=== PATIENT | male | born 1945 | race Native Hawaiian/Other Pacific Islander ===

== ENCOUNTER 2016-07-06 07:40 | Outpatient (CLI) | payer OTHER, BC ==
[2016-07-06 09:46] LABS: POTASSIUM 3.8 mmol/L (3.6-5.2); SODIUM 136 mmol/L (136-145)
== END 2016-07-06 19:05 | disposition home or self-care (01) ==
LOC: LABW 07:40
PROVIDERS: Internal Medicine Endocrinology, Diabetes & Metabolism
DX: E11.65 Type 2 diabetes mellitus with hyperglycemia (principal); E78.2 Mixed hyperlipidemia; E29.1 Testicular hypofunction; E53.8 Deficiency of other specified B group vitamins
CPT/HCPCS: 36415; 80053; 80061; 82607; 83036; 84402; 84403

== ENCOUNTER 2016-10-11 07:36 | Outpatient (CLI) | payer OTHER, BC ==
[2016-10-11 08:37] LABS: POTASSIUM 4.4 mmol/L (3.6-5.2); SODIUM 137 mmol/L (136-145)
== END 2016-10-11 19:42 | disposition home or self-care (01) ==
LOC: LABW 07:36
PROVIDERS: Internal Medicine Endocrinology, Diabetes & Metabolism
DX: E11.65 Type 2 diabetes mellitus with hyperglycemia (principal); E78.2 Mixed hyperlipidemia; E29.1 Testicular hypofunction; E53.8 Deficiency of other specified B group vitamins
CPT/HCPCS: 36415; 80053; 80061; 82607; 83036; 84402; 84403

== ENCOUNTER 2017-01-24 08:10 | Outpatient (CLI) | payer OTHER, BC ==
[2017-01-24 08:38] LABS: PLATELET COUNT 267 K/uL (142-355)
[2017-01-24 08:49] LABS: POTASSIUM 4.2 mmol/L (3.6-5.2)
== END 2017-01-24 09:10 | disposition home or self-care (01) ==
LOC: LABW 08:10
PROVIDERS: Internal Medicine Endocrinology, Diabetes & Metabolism
DX: E11.65 Type 2 diabetes mellitus with hyperglycemia (principal); E78.2 Mixed hyperlipidemia; E53.8 Deficiency of other specified B group vitamins
CPT/HCPCS: 80053; 80061; 82043; 82570; 82607; 83036; 85027

== ENCOUNTER 2017-06-01 10:20 | Outpatient (CLI) | payer OTHER, BC ==
[2017-06-01 10:48] LABS: SODIUM 138 mmol/L (136-145)
[2017-06-01 10:58] LABS: PLATELET COUNT 253 K/uL (142-355)
== END 2017-06-01 22:40 | disposition home or self-care (01) ==
LOC: LABW 10:20
PROVIDERS: Internal Medicine Endocrinology, Diabetes & Metabolism
DX: E11.65 Type 2 diabetes mellitus with hyperglycemia (principal)
CPT/HCPCS: 36415; 80053; 80061; 82607; 83036; 85027

== ENCOUNTER 2017-11-21 07:18 | Outpatient (CLI) | payer OTHER, BC ==
[2017-11-21 07:48] LABS: PLATELET COUNT 242 K/uL (142-355)
[2017-11-21 08:03] LABS: POTASSIUM 4.1 mmol/L (3.6-5.2)
== END 2017-11-21 19:58 | disposition home or self-care (01) ==
LOC: LABW 07:18
PROVIDERS: Internal Medicine Endocrinology, Diabetes & Metabolism
DX: E11.65 Type 2 diabetes mellitus with hyperglycemia (principal); E78.2 Mixed hyperlipidemia; E53.8 Deficiency of other specified B group vitamins
CPT/HCPCS: 36415; 80053; 80061; 82043; 82570; 82607; 83036; 85027

== ENCOUNTER 2017-12-21 13:24 | Outpatient (CLI) | payer OTHER, BC ==
[2017-12-21 14:09] LABS: POTASSIUM 4.2 mmol/L (3.6-5.2)
== END 2017-12-21 19:53 | disposition home or self-care (01) ==
LOC: LABW 13:24
PROVIDERS: Internal Medicine Endocrinology, Diabetes & Metabolism
DX: R80.8 Other proteinuria (principal)
CPT/HCPCS: 36415; 80048

== ENCOUNTER 2018-03-14 08:03 | Outpatient (CLI) | payer OTHER, BC ==
[2018-03-14 08:25] LABS: PLATELET COUNT 257 K/uL (142-355)
[2018-03-14 08:46] LABS: POTASSIUM 3.8 mmol/L (3.6-5.2)
== END 2018-03-14 19:13 | disposition home or self-care (01) ==
LOC: LABW 08:03
PROVIDERS: Internal Medicine Endocrinology, Diabetes & Metabolism
DX: E11.65 Type 2 diabetes mellitus with hyperglycemia (principal); E78.2 Mixed hyperlipidemia; E53.8 Deficiency of other specified B group vitamins; R80.9 Proteinuria, unspecified
CPT/HCPCS: 36415; 80053; 80061; 82043; 82570; 82607; 83036; 85027

== ENCOUNTER 2018-07-19 07:37 | Outpatient (CLI) | payer OTHER, BC ==
[2018-07-19 08:04] LABS: POTASSIUM 4.1 mmol/L (3.6-5.2)
[2018-07-19 08:07] LABS: PLATELET COUNT 288 K/uL (142-355)
== END 2018-07-19 20:19 | disposition home or self-care (01) ==
LOC: LABW 07:37
PROVIDERS: Internal Medicine Endocrinology, Diabetes & Metabolism
DX: E11.65 Type 2 diabetes mellitus with hyperglycemia (principal); E78.2 Mixed hyperlipidemia; R60.9 Edema, unspecified; R80.9 Proteinuria, unspecified; E53.8 Deficiency of other specified B group vitamins
CPT/HCPCS: 36415; 80053; 80061; 82043; 82570; 82607; 83036; 85027

== ENCOUNTER 2019-03-06 07:45 | Outpatient (CLI) | payer OTHER, BC ==
[2019-03-06 08:08] LABS: PLATELET COUNT 254 K/uL (142-355)
[2019-03-06 08:29] LABS: POTASSIUM 4.3 mmol/L (3.6-5.2)
== END 2019-03-06 22:53 | disposition home or self-care (01) ==
LOC: LABW 07:45
DX: E11.65 Type 2 diabetes mellitus with hyperglycemia (principal); E78.2 Mixed hyperlipidemia; R97.20 Elevated prostate specific antigen [PSA]
CPT/HCPCS: 36415; 80053; 80061; 82043; 82570; 83036; 84153; 85027

== ENCOUNTER 2019-06-11 07:44 | Outpatient (CLI) | payer OTHER, BC ==
[2019-06-11 08:21] LABS: PLATELET COUNT 281 K/uL (142-355)
[2019-06-11 08:43] LABS: POTASSIUM 4.5 mmol/L (3.6-5.2)
== END 2019-06-11 19:35 | disposition home or self-care (01) ==
LOC: LABW 07:44
PROVIDERS: Internal Medicine Endocrinology, Diabetes & Metabolism
DX: E11.65 Type 2 diabetes mellitus with hyperglycemia (principal); E29.1 Testicular hypofunction; E53.8 Deficiency of other specified B group vitamins
CPT/HCPCS: 36415; 80053; 80061; 82607; 83036; 84402; 84403; 85027

== ENCOUNTER 2019-12-11 07:20 | Outpatient (CLI) | payer OTHER, BC ==
[2019-12-11 08:00] LABS: PLATELET COUNT 258 K/uL (142-355)
[2019-12-11 08:19] LABS: POTASSIUM 4.7 mmol/L (3.6-5.2)
== END 2019-12-11 20:21 | disposition home or self-care (01) ==
LOC: LABW 07:20
PROVIDERS: Internal Medicine Endocrinology, Diabetes & Metabolism
DX: E29.1 Testicular hypofunction (principal); E11.65 Type 2 diabetes mellitus with hyperglycemia
CPT/HCPCS: 36415; 80053; 80061; 82043; 82570; 83036; 84153; 84403; 85027

== ENCOUNTER 2020-06-03 07:59 | Outpatient (CLI) | payer BC ==
[2020-06-03 08:37] LABS: PLATELET COUNT 267 K/uL (142-355)
== END 2020-06-03 21:36 | disposition home or self-care (01) ==
LOC: LABW 07:59
PROVIDERS: ATTEND Internal Medicine Endocrinology, Diabetes & Metabolism
DX: E11.65 Type 2 diabetes mellitus with hyperglycemia (principal); E78.2 Mixed hyperlipidemia; R97.20 Elevated prostate specific antigen [PSA]
CPT/HCPCS: 36415; 80053; 80061; 82043; 82570; 83036; 84153; 84403; 85027

== ENCOUNTER 2020-12-01 07:27 | Outpatient (CLI) | payer BC ==
[2020-12-01 08:25] LABS: PLATELET COUNT 171 K/uL (142-355)
[2020-12-01 08:31] LABS: POTASSIUM 4.3 mmol/L (3.6-5.2)
== END 2020-12-01 19:06 | disposition home or self-care (01) ==
LOC: LABW 07:27
PROVIDERS: ATTEND Internal Medicine Endocrinology, Diabetes & Metabolism
DX: E11.65 Type 2 diabetes mellitus with hyperglycemia (principal); E78.2 Mixed hyperlipidemia; R97.20 Elevated prostate specific antigen [PSA]
CPT/HCPCS: 36415; 80053; 80061; 82043; 82570; 83036; 84153; 84403; 85027

== ENCOUNTER 2021-06-10 08:05 | Outpatient (CLI) | payer BC ==
[2021-06-10 09:57] LABS: PLATELET COUNT 201 K/uL (142-355)
[2021-06-10 10:02] LABS: POTASSIUM 4.2 mmol/L (3.6-5.2)
== END 2021-06-10 18:50 | disposition home or self-care (01) ==
LOC: LABW 08:05
PROVIDERS: ATTEND Internal Medicine Endocrinology, Diabetes & Metabolism
DX: E29.1 Testicular hypofunction (principal); E11.65 Type 2 diabetes mellitus with hyperglycemia; E78.2 Mixed hyperlipidemia; R97.20 Elevated prostate specific antigen [PSA]
CPT/HCPCS: 36415; 80053; 80061; 82043; 82570; 83036; 84153; 84403; 85027

== ENCOUNTER 2021-08-20 13:56 | Outpatient (CLI) | payer BC | END 2021-08-20 19:58 | disposition home or self-care (01) | LOC: LABW 13:56 | PROVIDERS: ATTEND Podiatrist | DX: B35.1 Tinea unguium (principal) | CPT/HCPCS: 36415; 84450; 84460 ==

== ENCOUNTER 2022-02-16 08:08 | Outpatient (CLI) | payer BC ==
[2022-02-16 08:31] LABS: PLATELET COUNT 268 K/uL (142-355)
[2022-02-16 08:52] LABS: POTASSIUM 4.1 mmol/L (3.6-5.2)
== END 2022-02-16 19:17 | disposition home or self-care (01) ==
LOC: LABW 08:08
PROVIDERS: ATTEND Internal Medicine Endocrinology, Diabetes & Metabolism
DX: E29.1 Testicular hypofunction (principal); E11.65 Type 2 diabetes mellitus with hyperglycemia; R97.20 Elevated prostate specific antigen [PSA]
CPT/HCPCS: 36415; 80053; 80061; 82043; 82570; 83036; 84153; 84403; 85027

== ENCOUNTER 2022-09-08 08:05 | Outpatient (CLI) | payer BC ==
[2022-09-08 08:28] LABS: PLATELET COUNT 250 K/uL (142-355)
[2022-09-08 09:06] LABS: POTASSIUM 5.2 mmol/L (3.6-5.2)
== END 2022-09-08 20:41 ==
LOC: LABW 08:05
PROVIDERS: ATTEND Internal Medicine Endocrinology, Diabetes & Metabolism
DX: E78.2 Mixed hyperlipidemia (principal); R97.20 Elevated prostate specific antigen [PSA]; E11.65 Type 2 diabetes mellitus with hyperglycemia
CPT/HCPCS: 36415; 80053; 80061; 82043; 82570; 83036; 84153; 84403; 85027